=== PATIENT | female | born 2000 | race Two or more races ===

== ENCOUNTER 2023-03-26 11:05 | Inpatient (IN) | payer OTHER, SELFPAY ==
[2023-03-26 11:22] VITALS: BP 125/80; BP 136/84; PULSE 60; PULSE 99; RESP 16; TEMP 36.6; O2SAT 95; BMI 25.4
--- NOTE | 2023-03-26 12:05 | ED.PSYCH ---
HPI - Psych General Chief Complaint: Psychiatric Symptoms Stated Complaint: SI PER EMS Time Seen by Provider: 03/26/23 11:09 Source: patient, EMS and RN notes reviewed Mode of arrival: EMS Limitations: no limitations History of Present Illness HPI Narrative: 23-year-old female with no significant pmhx presents to the ED today via EMS for evaluation of suicidal ideation. 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 Reports worsening life stressors including school and home life. States that she does not like being home as she is always fighting with her family, however states that she feels safe there. Admits to having a heated discussion with friends while out last night. Upon returning home, walked into the kitchen and looked at the knives. States she wanted to grab the knife and slice her stomach open. Upon waking up this morning was upset that she was still alive. Reports informing the mental health center about this and was then transferred to the ED for evaluation. She is denying suicidal ideation at this time however is wondering how I got to this point and states she doesn't care if she's still on the planet. Denies HI. Endorses drinking one coors light this morning. Denies illicit drug use. Denies visual, auditory, tactile hallucinations. Denies any physical complaints at present. Related Data Home Medications Medication Instructions Recorded Confirmed No Known Home Meds 03/26/23 03/26/23 Allergies Allergy/AdvReac Type Severity Reaction Status Date / Time No Known Allergies Allergy Verified 03/26/23 11:36 Review of Systems Review of Systems: Constitutional: No fever, chills, fatigue, night sweats, weight changes ENT/Mouth: No ear pain, hearing loss, nasal congestion, sinus pain, rhinorrhea, sore throat Eyes: No eye pain, swelling, redness, vision changes, discharge Cardio: No chest pain, palpitations, WEAVER, orthopnea, peripheral edema Pulm: No SOB, cough, sputum, wheezing, dyspnea, hemoptysis GI: No nausea, vomiting, hematemesis, abdominal pain, diarrhea, constipation, hematochezia, melena : No irregular bleeding, dysuria, frequency, urgency, hesitancy, hematuria, MSK: No back pain, neck pain, joint pain, myalgias Skin: No lesions, rashes Neuro: No weakness, numbness, paresthesias, LOC, dizziness, headache Psych: No anxiety/panic, +depression, +SI, No HI, AH/VH All other systems reviewed and are negative. [facility] Past Medical History Attestation statement: The following information was validated with the patient. Source: old records reviewed and nursing notes reviewed Social History Social History Alcohol intake: current Alcohol intake frequency: a few times a month Alcohol type: beer and hard liquor Smoked in Last 30 Days: No Use of substances other than those prescribed or required for medical reasons: Yes Substance Use Type: Marijuana Substance Use Frequency: Occasionally Advance Directives: No Healthcare Proxy: No Guardian: No Patient : No Physical Exam Vital Signs: Vital Signs: Last Vital Signs Temp 97.8 F 03/26/23 11:22 Pulse 74 03/27/23 06:25 Resp 15 03/27/23 06:25 BP 118/76 03/27/23 06:25 Pulse Ox 98 03/27/23 06:25 O2 Del Method Room Air 03/27/23 06:25 BMI result Body Mass Index 25.4 Vital signs stable Const: Other: + Patient is tearful General: cooperative, no acute distress, alert and awake Orientation/consciousness: patient oriented x3 Limitations: no limitations HEENT: Head: Yes normal to inspection Ears: hearing grossly normal bilaterally General nose exam: Normal external nose present Eyes: General: appearance normal, both eyes and all related structures Conjunctivae: conjunctivae normal Sclerae: sclerae normal Pupils: Equal, round and reactive pupils present Neck: Neck: Yes normal visual inspection Resp: Effort & Inspection: normal respiratory effort Auscultation: clear to auscultation bilaterally Cardio: Rate: regular rate Rhythm: regular rhythm Peripheral pulses: radial pulses present GI: Inspection: Yes normal to inspection Palpation (GI): Soft to palpation and nontender : General: Yes no CVA tenderness Back/Spine/Pelvis: Back: no CVA tenderness Skin: General skin exam: no rashes or lesions noted Trauma: no lacerations or abrasions Neuro: General: patient oriented x3, gait normal and moves all extremities Cranial nerves: Yes CN's II-XII intact bilaterally and Yes Equal, round and reactive pupils present Extrem: General: Yes normal to inspection Psych: Mental Status: mental status grossly normal Speech and movement: Normal speech and movement present Affect: Sad affect present Attitude: cooperative Thought process: Normal thought process present Thought content: Suicidality present and Depressive thoughts present Course Course Course Narrative: 1256-- CBC without leukocytosis or anemia. Chemistry without acute electrolyte abnormality requiring intervention. Beta hCG negative. Ethanol negative. COVID negative. > Awaiting UDS and UA for medical clearance. 1352-- Toxicology negative. Urine without infection. Patient medically cleared for care team consultation. > Physician observation initiated. 1439 -- Informed by Sarika from care team that patient is expressing desire to leave the ED. The patient is a risk to herself given her suicidal ideation, plan, and recent reckless behavior. Patient will be placed on a Section 12 pending admission. Reevaluation(s) Reevaluation #1: patient is under Section 12, VSS, no event reported by nurse overnight, inpatient psych bed is underway, will continue with physician observation. Time: 07:25 Medical Decision Making Medical Decision Making MDM Narrative: 23-year-old female with no significant pmhx presents to the ED today via EMS for evaluation of suicidal ideation. VSS. Nontoxic appearing. Patient is tearful during initial evaluation. Eyes are injected and swollen from crying. RRR. Lungs CTA b/l. There are no skin lesions, rashes, or lacerations. Abd soft, NT/ND. Clinical concern for suicidal ideation, depression, PTSD, substance abuse, etoh abuse. Plan at this time is basic labs, UA, and medical clearance. Differential Diagnosis Differential Diagnoses: The differential diagnosis associated with the presentation includes As above. Admission/Observation Consideration of admission/observation: Escalation of care including admission/observation considered Patient will be admitted. Consult Healthcare Provider Management of the patient was discussed with: Behavioral Health Provider (Sarika from care team) Lab Data [facility] Lab Attestation statement: I reviewed the patient's lab results. As above. 03/26/23 12:06 03/26/23 12:06 Labs: Lab Results 03/26/23 03/26/23 Range/Units 12:06 13:08 WBC 8.8 (4.8-10.8) X10*3/uL RBC 5.44 (4.20-5.50) X10*6/uL Hgb 13.9 (12.0-16.0) g/dl Hct 43.2 (37.0-47.0) % MCV 79.4 L (80.0-98.0) fL MCH 25.6 L (27.0-33.0) pg MCHC 32.2 (31.0-35.0) g/dl RDW 14.7 (11.0-16.0) % Plt Count 322 (160-400) X10*3/uL MPV 11.3 (9.4-12.3) fL Immature Gran % (Auto) 0.3 (0.0-0.4) % Neut % (Auto) 67.6 (45-73) % Lymph % (Auto) 22.6 (20-40) % [place] % (Auto) 7.8 (2-11) % Eos % (Auto) 0.9 (0-4) % Baso % (Auto) 0.8 (0-2) % Lymph # (Auto) 2.0 (1.2-4.9) X10*3/uL [place] # (Auto) 0.7 (0.1-1.2) X10*3/uL Eos # (Auto) 0.1 (0.0-0.4) X10*3/uL Baso # (Auto) 0.1 (0.0-0.2) X10*3/uL Abs Immat Gran (auto) 0.03 (0.00-0.03) X10*3/uL Absolute Neuts (auto) 5.9 (2.0-8.3) x10*3/uL Absolute Nucleated RBC 0.000 (0.0-0.012) X10*3/uL Nucleated RBC % (auto) 0.0 (0.0-0.2) /100WBC Sodium 141 (135-145) mmol/L Potassium 3.7 (3.3-5.1) mmol/L Chloride 107 (96-108) mmol/L Carbon Dioxide 23 (22-29) mmol/L Anion Gap 15 (12-20) BUN 8 L (9-16) mg/dL Creatinine 0.74 (0.5-1.4) mg/dL Estim Creat Clear Calc 96.6 Estimated GFR > 60 Random Glucose 102 (60-115) mg/dL Calcium 9.6 (8.4-10.2) mg/dL Magnesium 2.1 (1.6-2.6) mg/dL Lipase 24 (8-78) U/L Beta HCG, Quant < 2 mIU/mL Urine Color Yellow Urine Appearance Clear Urine pH 6.0 (5.0-9.0) Ur Specific [place] 1.010 (1.005-1.025) Urine Protein Negative (Neg-Trace) mg/dL Urine Glucose (UA) Negative (Negative) mg/dL Urine Ketones Negative (Negative) mg/dL Urine Blood Negative (Negative) Urine Nitrite Negative (Negative) Ur Leukocyte Esterase Negative (Negative) Urine Opiates Screen Not Detected (Not Detect) Urine Fentanyl Screen Not Detected (Not Detect) Ur Barbiturates Screen Not Detected (Not Detect) Ur Phencyclidine Scrn Not Detected (Not Detect) Ur Amphetamines Screen Not Detected (Not Detect) U Benzodiazepines Scrn Not Detected (Not Detect) Urine Cocaine Screen Not Detected (Not Detect) U Marijuana (THC) Screen Not Detected (Not Detect) Ethyl Alcohol 110 mg/dL COVID-19 (KIZZY) Negative (Negative) COVID-19 Clin Com See Note Independent Historian Clinical information obtained from an independent historian. History obtained from or confirmed by: EMS External Record Review External record reviewed: Inpatient record Social Determinants Patient?s care significantly limited by Social Determinants of Health including: Problems related to primary support group and Other Social Determinant of Health Critical Care Time Critical Care Time Critical Care Time: No Discharge Plan Discharge Clinical Impression: Suicidal ideation, Depression Patient Disposition: Still a Patient Prescriptions: No Action No Known Home Meds Interventions: [place]-Suicide Risk Severity Scale Last Done: 03/27/23 00:27
[2023-03-26 12:11] LABS: MANUAL DIFF FLAG NO
[2023-03-26 12:14] LABS: Basophils Absolute Auto 0.1 X10*3/uL (0.0-0.2); Basophils Percent Auto 0.8 % (0-2); Eosinophils Absolute Auto 0.1 X10*3/uL (0.0-0.4); Eosinophils Percent Auto 0.9 % (0-4); Hematocrit 43.2 % (37.0-47.0); Hemoglobin 13.9 g/dl (12.0-16.0); Imm Gran Abs Auto 0.03 X10*3/uL (0.00-0.03); Imm Gran Pct Auto 0.3 % (0.0-0.4); Lymphocytes Percent Auto 22.6 % (20-40); Mean Corpuscular HGB Conc 32.2 g/dl (31.0-35.0); Mean Corpuscular Hemoglobin 25.6 pg (27.0-33.0); Mean Corpuscular Volume 79.4 fL (80.0-98.0); Mean Platelet Volume 11.3 fL (9.4-12.3); Monocytes Absolute Auto 0.7 X10*3/uL (0.1-1.2); Monocytes Percent Auto 7.8 % (2-11); Neutrophils Absolute Auto 5.9 x10*3/uL (2.0-8.3); Neutrophils Percent Auto 67.6 % (45-73); Platelet Count 322 X10*3/uL (160-400); Red Blood Count 5.44 X10*6/uL (4.20-5.50); Red Cell Distribution Width 14.7 % (11.0-16.0); White Blood Count 8.8 X10*3/uL (4.8-10.8)
[2023-03-26 12:25] LABS: Anion Gap 15 (12-20); Blood Urea Nitrogen 8 mg/dL (9-16); Calcium 9.6 mg/dL (8.4-10.2); Carbon Dioxide 23 mmol/L (22-29); Chloride 107 mmol/L (96-108); Creatinine Clr Calc Pharmacy 96.6; Estimated Glomerular Filt Rate > 60; Glucose Random 102 mg/dL (60-115); Lipase 24 U/L (8-78); Magnesium 2.1 mg/dL (1.6-2.6); Potassium 3.7 mmol/L (3.3-5.1); Sodium 141 mmol/L (135-145)
[2023-03-26 12:28] LABS: COVID-19 Test Negative (Negative); IDNOW Serial# 08D9AD1C
[2023-03-26 12:30] LABS: Ethanol 110 mg/dL
[2023-03-26 12:33] LABS: HCG Quantitative < 2 mIU/mL
[2023-03-26 13:19] LABS: Appearance Urine Clear; Color Urine Yellow; Glucose Urine UA Negative (Negative); Leukocyte Esterase Urine Negative (Negative); Nitrite Urine Negative (Negative); Urine Blood Negative (Negative); Urine Ketones Negative (Negative); Urine Protein Negative (Neg-Trace)
[2023-03-26 13:28] LABS: Amphetamine Screen Urine Not Detected (Not Detect); Barbiturates, Urine Not Detected (Not Detect); Benzodiazepines Screen Urine Not Detected (Not Detect); Cannabinoid Screen Urine Not Detected (Not Detect); Cocaine Screen Urine Not Detected (Not Detect); Fentanyl, urine Not Detected (Not Detect); Opiate Screen Urine Not Detected (Not Detect); Phencyclidine Screen Urine Not Detected (Not Detect)
[2023-03-26 18:52] VITALS: BP 120/77; PULSE 99; RESP 18; O2SAT 96
--- NOTE | 2023-03-27 | ECG_ITS ---
Test Reason : qtc check Blood Pressure : / mmHG Vent. Rate : 066 BPM Atrial Rate : 066 BPM P-R Int : 122 ms QRS Dur : 072 ms QT Int : 404 ms P-R-T Axes : 041 088 069 degrees QTc Int : 423 ms Normal sinus rhythm Normal ECG No previous ECGs available Referred By: Ksenia Jarrett Electronically Signed By:ZOHREH ELLIS MD
--- NOTE | 2023-03-27 00:24 | PC.NURSE ---
Patient currently in bed appears sleeping, no distress observed/reported, behavior pleasnat and non concerning, med rec completed/patient is currently not on home medication, patient was assessed by care team, disposition section 12 inpatient bed search, VSS, labs completed/resulted, asymptomatic of withdrawal at this time, will continue to monitor.
[2023-03-27 06:25] VITALS: BP 118/76; PULSE 74; RESP 15; O2SAT 98
--- NOTE | 2023-03-27 07:20 | PC.NURSE ---
Resumed care of patient, she is currently resting, no evens reported from overnight nurse. Awaiting dispo plan from care team at this time. Safety checks maintained q 15 minutes
[2023-03-27] MEDS: Folic Acid 1 MG TABLET PO (13:58)
[2023-03-27] MEDS: Thiamine HCL 100 MG TABLET PO (13:58)
[2023-03-27] MEDS: Multivitamin TABLET 1 TAB PO (13:58)
[2023-03-27 14:43] VITALS: BP 123/75; PULSE 75; RESP 18; TEMP 36.5; O2SAT 100
[2023-03-27 21:00] VITALS: BP 109/71; PULSE 84; TEMP 36.4; O2SAT 97
[2023-03-28 08:00] VITALS: BP 113/71; PULSE 92; RESP 16; TEMP 35.9; O2SAT 99
[2023-03-28] MEDS: Thiamine HCL 100 MG TABLET PO (08:25)
[2023-03-28] MEDS: Folic Acid 1 MG TABLET PO (08:25)
[2023-03-28] MEDS: Multivitamin TABLET 1 TAB PO (08:25)
[2023-03-28 09:01] LABS: Estimated Average Glucose 103 mg/dL; Hemoglobin A1c % 5.2 % (<6.0)
[2023-03-28 09:12] LABS: Alanine Aminotransferase 5 U/L (0-31); Albumin Level 4.3 g/dL (3.5-5.0); Alkaline Phosphatase 58 U/L (39-117); Anion Gap 12 (12-20); Aspartate Amino Transferase 14 U/L (5-31); Bilirubin Total 0.5 mg/dL (0.0-1.0); Blood Urea Nitrogen 9 mg/dL (9-16); Calcium 9.9 mg/dL (8.4-10.2); Carbon Dioxide 27 mmol/L (22-29); Chloride 105 mmol/L (96-108); Cholesterol 206 mg/dL (<200); Creatinine Clr Calc Pharmacy 92.8; Estimated Glomerular Filt Rate > 60; Glucose Fasting 106 mg/dL (60-99); HDL Cholesterol 116 mg/dL (>40); LDL Cholesterol Calculated 80 mg/dL (<100); Magnesium 2.1 mg/dL (1.6-2.6); Potassium 4.2 mmol/L (3.3-5.1); Sodium 140 mmol/L (135-145); Total Protein 7.5 g/dL (6.5-8.0); Triglycerides 52 mg/dL (<150)
[2023-03-28 09:22] LABS: Free T4 (Free Thyroxine) 0.93 ng/dL (0.71-1.85); Thyroid Stimulating Hormone 1.75 uIU/mL (0.32-4.0)
[2023-03-28 09:37] LABS: Folate 14.2 ng/mL (> or = 4.0); Vitamin B12 602 pg/mL (200-900)
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
[2023-03-28 17:39] VITALS: BP 118/61; PULSE 68; RESP 16; TEMP 36.7; O2SAT 99
[2023-03-29] MEDS: Melatonin 3 MG TABLET 9 MG PO ×2 (00:06→22:27)
[2023-03-29 07:00] VITALS: BMI 23.5
[2023-03-29 08:49] VITALS: BP 118/62; PULSE 85; RESP 16; TEMP 36.4; O2SAT 99
[2023-03-29] MEDS: Thiamine HCL 100 MG TABLET PO (09:03)
[2023-03-29] MEDS: Folic Acid 1 MG TABLET PO (09:03)
[2023-03-29] MEDS: Multivitamin TABLET 1 TAB PO (09:03)
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
[2023-03-29 18:30] VITALS: BP 116/78; PULSE 68; RESP 16; TEMP 36.9; O2SAT 100
[2023-03-29] MEDS: hydrOXYzine HCL 25 MG TABLET PO (22:27)
[2023-03-30] MEDS: buPROPion HCl XL 150 MG TAB.ER.24H PO (08:17)
[2023-03-30] MEDS: Folic Acid 1 MG TABLET PO (08:17)
[2023-03-30] MEDS: Thiamine HCL 100 MG TABLET PO (08:17)
[2023-03-30] MEDS: Multivitamin TABLET 1 TAB PO (08:17)
[2023-03-30 09:11] VITALS: BP 120/64; PULSE 83; RESP 16; TEMP 36.6; O2SAT 98
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
[2023-03-30 18:00] VITALS: BP 115/66; PULSE 71; TEMP 36.2; O2SAT 99
[2023-03-30] MEDS: Melatonin 3 MG TABLET 9 MG PO (23:20)
[2023-03-31] MEDS: Folic Acid 1 MG TABLET PO (08:37)
[2023-03-31] MEDS: Thiamine HCL 100 MG TABLET PO (08:37)
[2023-03-31] MEDS: buPROPion HCl XL 150 MG TAB.ER.24H PO (08:37)
[2023-03-31] MEDS: Multivitamin TABLET 1 TAB PO (08:37)
[2023-03-31 08:38] VITALS: BP 116/64; PULSE 66; RESP 16; TEMP 36.3; O2SAT 99
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
[2023-03-31 18:00] VITALS: BP 123/70; PULSE 84; RESP 17; TEMP 36.8; O2SAT 99
[2023-04-01 08:20] VITALS: BP 114/55; PULSE 79; RESP 16; TEMP 36.4; O2SAT 96
[2023-04-01] MEDS: Thiamine HCL 100 MG TABLET PO (08:29)
[2023-04-01] MEDS: buPROPion HCl XL 150 MG TAB.ER.24H PO (08:29)
[2023-04-01] MEDS: Multivitamin TABLET 1 TAB PO (08:29)
[2023-04-01] MEDS: Folic Acid 1 MG TABLET PO (08:29)
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
[2023-04-01 18:00] VITALS: BP 125/71; PULSE 75; TEMP 36.9; O2SAT 100
[2023-04-01] MEDS: Melatonin 3 MG TABLET 9 MG PO (18:55)
[2023-04-02 08:10] VITALS: BP 116/56; PULSE 81; RESP 18; TEMP 36.4; O2SAT 98
[2023-04-02] MEDS: Folic Acid 1 MG TABLET PO (08:50)
[2023-04-02] MEDS: Multivitamin TABLET 1 TAB PO (08:50)
[2023-04-02] MEDS: Thiamine HCL 100 MG TABLET PO (08:51)
[2023-04-02] MEDS: buPROPion HCl XL 300 MG TAB.ER.24H PO (08:51)
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
== END 2023-04-02 11:50 | disposition home or self-care (01) | DRG 751 ==
LOC: HO.ED 19:45 → HO.PM5 03-27 13:22
PROVIDERS: Clinical Nurse Specialist Psychiatric/Mental Health, Adult; Physician Assistant Medical; Admitting Provider Psychiatry & Neurology Psychiatry; Emergency Provider Student in an Organized Health Care Education/Training Program; Visit Provider Psychiatry & Neurology Psychiatry
DX: F33.2 Major depressive disorder, recurrent severe without psychotic features (principal); R45.851 Suicidal ideations; F43.10 Post-traumatic stress disorder, unspecified; F10.10 Alcohol abuse, uncomplicated; Y90.5 Blood alcohol level of 100-119 mg/100 ml; Z20.822 Contact with and (suspected) exposure to COVID-19
CPT/HCPCS: 36415; 80048; 80053; 80061; 80307; 81003; 82607; 82746; 83036; 83690; 83735; 84439; 84443; 84702; 85025; 87635; 93005; 99285; S9485

== ENCOUNTER → 2023-03-27 12:48 | Outpatient (BNV) | payer OTHER, SELFPAY | PROVIDERS: Admitting Provider Psychiatry & Neurology Psychiatry; Emergency Provider Student in an Organized Health Care Education/Training Program; Visit Provider Psychiatry & Neurology Psychiatry | DX: F33.2 Major depressive disorder, recurrent severe without psychotic features (principal); F43.11 Post-traumatic stress disorder, acute; F10.90 Alcohol use, unspecified, uncomplicated | CPT/HCPCS: 90792; 99231; 99232; 99238 ==